=== PATIENT | female | born 1970 | race Caucasian/White ===

== ENCOUNTER 2016-10-13 09:17 | Day surgery (SDC) | payer OTHER ==
[2016-10-07 13:29] VITALS: BMI 34.0
--- NOTE | 2016-10-07 14:24 | PAT Medication Instructions ---
Service Date Oct 07, 2016. Current Home Medication List Bupropion (Wellbutrin Sr), 150 MG PO QAM Insulin Glargine (Lantus), 20 UNITS SC QAM Insulin Lispro (Human) (Humalog), 1 DOSE SQ UD PRN for CARB RATION Omeprazole (Prilosec), 20 MG PO QAM PRN for Indigestion Medication Instructions For Your Scheduled Surgery - Hold the following medications the morning of surgery: Insulin Lispro (Human) (Humalog), 1 DOSE SQ UD PRN for CARB RATION - Take the following medications the morning of surgery with a sip of water: Omeprazole (Prilosec), 20 MG PO QAM PRN for Indigestion Bupropion (Wellbutrin Sr), 150 MG PO QAM - For Insulin Dependent Diabetic patients: Test blood sugar A.M. of surgery. - If blood sugar is greater than 150, take half of your regular dose of: Lantus 10 units - If blood sugar is less than 150, do not take any: Lantus If you have any questions please call us at [phone] or [phone] ( [place]) or [phone]
[2016-10-07 15:07] LABS: INR 0.9 (0.9-1.1); PARTIAL THROMBOPLASTIN RATIO 1.1; PROTHROMBIN TIME (PATIENT) 9.6 SECONDS (9.0-12.0)
--- NOTE | 2016-10-07 15:26 | DIAGNOSTIC IMAGING REPORT ---
CHEST PREADMISSION(PA/LAT) CLINICAL HISTORY: PAT preoperative evaluation COMPARISON STUDY: No previous studies for comparison. FINDINGS: The bones soft tissues and hemidiaphragms are normal. The cardiomediastinal silhouette is normal. The lungs are clear. The pulmonary vasculature is normal. IMPRESSION: Negative chest. Electronically signed by: Dragan Thomas M.D. 10/07/2016 3:25 PM Dictated Date/Time: 10/07/2016 3:21 PM
--- NOTE | 2016-10-12 16:15 | History and Physical ---
History & Physical Date of Service Oct 12, 2016. History & Physical CC: Varicose veins of the lower extremittes. HPI: Ms. Wilcox states that she has had them for a number of years, but that they did become more painful over the past 3-4 years. She says she did begin wearing panty hose compression, but was unsure of the compression strength, but that she did start wearing them on a fairly regular basis 3-4 years ago. She states that at this point, she is down to only wearing them when she is working. She is on her feet as a registered nurse. She states that she has not worked in the last 2-3 months and previous to that was only working 2-3 days a week as well. She states that she has increased pain and swelling in her left leg after exercising. She is not wearing her stockings at that time because it is too hot in the gym. She denies other complaints at this time including headaches, fevers, chills, dizziness, chest pain, shortness of breath , abdominal pain, nausea, vomiting, diarrhea, constipation, dysuria, hematuria, rest pain, claudication, nonhealing wounds or ulcers or other complaints. She returned to the office and stated they are significantly worse in the left leg than the right and it does cause her considerable discomfort particularly when she attempts to exercise. She states that she has been wearing her panty hose compression regularly for the last 3 months, even during exercise; however , she states that they do pull down and fall down and sometimes cause her more discomfort than not wearing them at all. She has been faithfully wearing them. She exercises at least 3-5 days a week and does elevate her legs when she is able due to the discomfort particularly as I have said, in her left leg. She had an ultrasound performed prior to today's appointment to check for saphenous vein reflux, which demonstrates saphenous vein incompetence with reflux noted. However, the size of her great saphenous vein in the left lower extremity is 2.6 mm in the distal thigh and 3 mm at the knee. Her right leg great saphenous vein diameter is 2.5 mm in the distal thigh and 2.5 mm at the knee and also demonstrates saphenous vein reflux. ALLERGIES: IVP DYE AND BENADRYL. HOME MEDICATIONS: Reconciled on the chart and include a Humalog pen, Lantus insulin, omeprazole and Wellbutrin. PAST MEDICAL HISTORY: Positive for type 1 diabetes mellitus with insulin pump, depression, and the varicose veins. PAST SURGICAL HISTORY: Positive for cholecystectomy, gastric bypass, diaphragmatic hernia and tonsillectomy. FAMILY HISTORY: Positive for arthritis in her sister, heart disease in her mother, skin cancer and stroke in her father, diabetes in distant relatives and varicose veins in multiple uncles as well as her father. SOCIAL HISTORY: Positive for a current history of tobacco use. The patient states that she smokes at least 1 pack a day. She denies any significant alcohol use and denies any illicit drug use. 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 REVIEW OF SYSTEMS: Negative for fatigue, fevers, sweats, weight loss, exercise intolerance, abnormal moles, vision changes or photophobia, ear pain, sinus problems or sore throat, cough, shortness of breath, hemoptysis or wheezing, chest pain, palpitations or syncope edema primarily of her left ankle after exercising. She denies abdominal pain, nausea, vomiting, diarrhea, constipation , dysuria, hematuria, muscle weakness, headaches, dizziness, numbness or seizures. PHYSICAL EXAMINATION: Her vital signs today were as follows: Blood pressure of 128/82 in her left arm, heart rate of 59 and oxygenation of 98% on room air. She is 167 cm tall and weighs 89 kg. Constitutional: In general, the patient is an overweight but generally healthy-appearing, well-nourished, well- developed middle-aged female in no acute distress. She ambulates without assistance and is active, alert and oriented x4 with normal recent and remote memory. Her head is normocephalic and atraumatic. Eyes are EOMI. Her ENWY exam demonstrates no hearing loss, rhinorrhea or pharyngeal erythema. Her neck is supple, nontender with midline trachea without masses or crepitus. Lung exam demonstrates no dyspnea; they are clear to auscultation bilaterally. They are decreased somewhat throughout. Cardiovascular exam demonstrates nondisplaced apical impulse with a regular rate and rhythm without murmurs, lifts, heaves, thrills or gallops. Peripheral pulses full and equal in all extremities unless otherwise noted; specifically they are normal in her carotid , brachial, radial, femoral, posterior tibial and dorsalis pedis pulses. The patient demonstrates no bruits in her carotid, abdominal or femoral area. Her abdomen is soft and nontender with normoactive bowel sounds in all 4 quadrants without guarding or rebound. There is no flank or CVA tenderness. No pulsatile mass appreciable. Her musculoskeletal exam demonstrates normal tone and strength for age. Bilateral upper extremities demonstrate no cyanosis, edema, clubbing, varicosities or ulcers. Her left lower extremity demonstrates large varicosities which are somewhat tortuous, extending from her mid-thigh down into her lower leg as well as her posterior lower leg. This is mildly tender to palpation. There is no erythema, warmth or firm hard cord noted there. She does have other scattered varicosities and spider veins as well. The diameter of this large varicosity in her left leg is approximately 10 mm. The right lower extremity does demonstrate some scattered varicosities to a lesser extent as well as patches of spider veins as well. She has trace edema in her bilateral ankles. Neurologically, the patient has grossly intact cranial nerves and grossly intact sensation. ASSESSMENT: Complicated varicose veins, primarily of the left lower extremity PLAN: The patient is admitted for a left lower extremity ambulatory phlebectomy of the large varicosity. The procedure, risks, benefits, and alternatives were discussed at length with the patient. She expressed understanding and agreement to proceed
[~2016-10-13] VITALS: Ht 167.6 cm; Wt 95.9 kg
[~2016-10-13 09:17] MED LIST: BUPR-79 PO; CEFAZOLIN 2000 MG/60 ML D5W 60 ML IV SCH; INSDGI SC; INSU100I SQ; LACTATED RINGER'S 1000ML IV SCH; PRLSR20 PO; SCOPOLAMINE 1.5 MG TDSY TD SCH; SODIUM CHLORIDE 0.9% 1000ML 1,000 ML IV SCH
[2016-10-13] MEDS ORDERED: FERR1TAB13 PO (10:07)
[2016-10-13 10:13] VITALS: BP 105/74; PULSE 73; TEMP 36.5; O2SAT 100; Ht 167.6 cm; Wt 95.9 kg
[2016-10-13] MEDS ORDERED: PROPOFOL IV EMULSION 10 MG/ML 20 ML VIAL IV ONE (10:16)
[2016-10-13] MEDS ORDERED: FENTANYL CITRATE INJ 50 MCG/1 ML 2 ML VIAL ONE ×2 (10:17→13:43)
[2016-10-13] MEDS ORDERED: MIDAZOLAM HCL 1 MG/ML 2ML VIAL ONE ×2 (10:17→12:20)
[2016-10-13] MEDS ORDERED: LIDOCAINE HCL 2% 2 ML VIAL (20MG/ML) ONE (10:21)
[2016-10-13] MEDS ORDERED: ONDANSETRON INJ 2 MG/ML 2 ML VIAL ONE (10:21)
[2016-10-13] MEDS ORDERED: DEXAMETHASONE SOD INJ 4 MG/ML VIAL ONE (10:21)
[2016-10-13] MEDS ORDERED: LACTATED RINGER'S 1000ML 1,000 ML IV PRN (10:22)
[2016-10-13] MEDS ORDERED: FENTANYL CITRATE INJ 50 MCG/1 ML 2 ML VIAL IV PRN (10:30)
[2016-10-13] MEDS ORDERED: ONDANSETRON INJ 2 MG/ML 2 ML VIAL IV PRN (10:30)
[2016-10-13 10:54] LABS: PREG INTERNAL NEGATIVE QC NEG CLEAR BACKGROUND; PREG INTERNAL POSITIVE QC POS CONTROL LINE
--- NOTE | 2016-10-13 12:31 | History & Physical Bridge Note ---
H&P Re-Evaluation Bridge Note: I have examined the patient, reviewed the History & Physical and in the interval since the performance of the History & Physical I have noted the following changes of clinical significance: No changes noted
[2016-10-13] MEDS ORDERED: HEPARIN SOD (PORCINE) 1000 UNIT/ML 10 ML VIAL ONE (13:04)
[2016-10-13] MEDS ORDERED: OXYC-57 PO (14:21)
--- NOTE | 2016-10-13 14:27 | Discharge Instructions ---
Discharge Instructions Date of Service Oct 13, 2016. Visit Reason for Visit: Complicated Varicose Veins Left Leg Discharge Discharge Diagnosis / Problem: Varicose veins left lower extremity Discharge Goals Goal(s): Therapeutic intervention Activity Recommendations Activity Limitations: per Instructions/Follow-up section Anesthesia . Post Anesthesia Instructions: If you have had General Anesthesia or IV Sedation: * Do not drive today. * Resume driving when surgeon permits. * Do not make important decisions or sign legal documents today. * Call surgeon for: 1. Temperature elevations greater than 101 degrees F. 2. Uncontrollable pain. 3. Excessive bleeding. 4. Persistent nausea and vomiting. 5. Medication intolerance (nausea, vomiting or rash). * For nausea and vomiting use only clear liquids such as: tea, soda, bouillon until nausea subsides, then gradually increase diet as tolerated. * If you have any concerns or questions, call your surgeon's office. If physician is unavailable and it is an emergency, call 911 or go to the nearest emergency room. . Instructions / Follow-Up Instructions / Follow-Up SPECIAL CARE INSTRUCTIONS: Wraps/Dressings: * A compression wrap will be applied to your legs after the procedure and should remain in place until the morning after. * Remove the bandage if it rolls down or causes pain. Rewrap the leg starting at the bottom of the leg, just above the toes. Apply firm, but gently pressure when applying the wrap. * Avoid getting the wrap wet. * You may shower the following morning after you remove the wraps/dressings. Compression Stockings: * Begin wearing compression stockings the day following your procedure (after you have removed the wraps/dressings and showered). * Compression stockings should be put on in the morning and removed right before going to bed. * Stockings should be worn for 2 weeks following the procedure. * YOU MUST OBTAIN THE PRESCRIBED STOCKINGS PRIOR TO YOUR PROCEDURE. Activity: * Walk 4-5 times around the house after you come home from your procedure. * Elevate your leg(s) while sitting. * You may resume your normal activities as tolerated after 24 hours. Possible Complications: * Swelling/Bruising/Soreness - You may have some swelling, bruising and/or soreness after the procedure. you may also feel a "cord or rope" under the skin. This is normal. You may take Tylenol or Ibuprofen for pain as directed. Call our office ([phone]) if you develop: * Any redness, severe swelling, pain in the calf and/or drainage from the puncture sites You will be receiving a call from the Vascular Surgery Nurse after you are discharged. FOLLOW UP VISIT: You will be scheduled for an ultrasound of your leg(s) 4-5 days after the procedure. You will have a follow up visit with your surgeon in 2-4 weeks. If these have not already been scheduled, please call our office at [phone] to schedule. Diet Recommendations Recommended Home Diet: resume previous diet Procedures Procedures Performed: Left Leg Phlebectomy Pending Studies Studies pending at discharge: no Medical Emergencies . Who to Call and When: Medical Emergencies: If at any time you feel your situation is an emergency, please call 911 immediately. . Non-Emergent Contact Non-Emergency issues call your: Surgeon . . "Provider Documentation" section prepared by Shreyas Allen. [place] Drug Monitoring Program Search Results: patient reviewed within database, no issues identified
--- NOTE | 2016-10-13 14:29 | OPERATIVE REPORT ---
DATE OF OPERATION: 10/13/2016 PREOPERATIVE DIAGNOSIS: Left lower extremity pain and swelling with large varicosities. POSTOPERATIVE DIAGNOSIS: Same. PROCEDURE: Phlebectomy (14 incisions) of left lower extremity varicosities. SURGEON: Shreyas Allen M.D. RUBBISH COLLECTOR: Nahun Vasquez M.D., Jackelin Plascencia PA-C. ESTIMATED BLOOD LOSS: 100 mL. ANESTHESIA: General. COMPLICATIONS: None. INDICATIONS: This is a 46-year-old female who presented with left lower extremity swelling and discomfort. Venous duplex did not show a significant reflux in the greater saphenous vein. However, she did have a very large varicosity along the medial aspect of her leg. This area became especially painful at the end of the day. Phlebectomy was indicated for relief of her left lower extremity symptoms. She understood the risks, benefits, alternatives to the above procedure and agreed to proceed. PROCEDURE: The patient was brought to the operating room and placed in the supine position. Left lower extremity was prepped and draped in normal sterile fashion. A timeout was performed and all parties agreed to the correct patient and procedure to be performed. Appropriate surgical prophylactic antibiotics were administered within 1 hour of the incision. The vein had been previously marked. Again, it was a large vein that travelled along the medial aspect of her leg from the level of the mid thigh back behind her knee. Approximately 14 separate stab incisions were made along the length of the vein. Dissection was carried down bluntly and the vein was encountered. It was pulled out using a sequential hemostat. Several areas were tied. There was some bleeding. There was some bleeding encountered and pressure was held on the vein. We made multiple stab incisions along the medial aspect of her leg as well as behind her knee to remove these large varicosities. Pressure was held and hemostasis was achieved. The incisions were stapled closed. Her leg was wrapped in a compressive bandage. She was awakened and transferred to recovery room in satisfactory condition. I attest to the content of the Intraoperative Record and any orders documented therein. Any exceptio ns are noted below.
--- NOTE | 2016-10-13 14:32 | [facility] Post Operative Brief Note ---
Immediate Operative Summary Operative Date Oct 13, 2016. Pre-Operative Diagnosis Complicated varicose veins, left lower extremities. Post-Operative Diagnosis Same as preop. Procedure(s) Performed Left Leg Phlebectomy Surgeon Dr. Allen Aircrewman Surgeon(s) Dr. Nahun Vasquez, Jackelin Yates, PAC Estimated Blood Loss 75 ml Findings Varicose veins Specimens A: Left leg varicose vein. Anesthesia Gen Complication(s) None Disposition Recovery Room / PACU
[2016-10-13 15:29] VITALS: BP 128/76; PULSE 72; TEMP 37.1; O2SAT 96
--- NOTE | 2016-10-13 15:41 | Anesthesiology Progress Note ---
Anesthesia Post Op Note Date & Time Oct 13, 2016 at 15:40 Vital Signs Pain Intensity: 0 Vital Signs Past 12 Hours Date Time Temp Pulse Resp B/P Pulse Ox O2 Delivery O2 Flow Rate FiO2 10/13/16 15:29 37.1 72 20 128/76 96 0 10/13/16 15:12 36.6 10/13/16 15:08 58 21 95 10/13/16 15:08 59 21 10/13/16 15:05 118/76 10/13/16 15:03 56 17 93 10/13/16 15:03 56 17 10/13/16 15:00 123/80 10/13/16 14:58 64 14 10/13/16 14:58 64 14 97 10/13/16 14:55 139/81 10/13/16 14:53 66 16 10/13/16 14:53 67 16 96 10/13/16 14:52 68 16 96 10/13/16 14:52 65 16 10/13/16 14:50 139/78 10/13/16 14:47 68 16 10/13/16 14:47 68 16 96 10/13/16 14:46 135/79 10/13/16 14:42 67 18 10/13/16 14:42 68 18 100 10/13/16 14:41 65 18 100 10/13/16 14:41 67 18 10/13/16 14:40 120/84 10/13/16 14:36 71 25 10/13/16 14:36 70 25 100 10/13/16 14:35 143/81 10/13/16 14:31 78 21 10/13/16 14:31 78 21 100 10/13/16 14:30 137/79 10/13/16 14:26 36.4 81 20 133/74 100 Mask 10 10/13/16 14:26 78 16 10/13/16 14:26 75 16 133/74 100 10/13/16 10:13 36.5 73 20 105/74 100 Room Air Notes Mental Status: alert / awake / arousable, participated in evaluation Pt Amnestic to Procedure: Yes Nausea / Vomiting: adequately controlled Pain: adequately controlled Airway Patency, RR, SpO2: stable & adequate BP & HR: stable & adequate Hydration State: stable & adequate Anesthetic Complications: no major complications apparent Pt's post-op glucose glucose 299. Pt refuses insulin, saying she'll take her own at home and resume her usual type I DM regimen.
[2016-10-13 15:52] VITALS: BP 119/74; PULSE 68; TEMP 37.1; O2SAT 96
[2016-10-13] MEDS ORDERED: CHECK SCOPOLAMINE PATCH PLACEMENT SCH (16:00)
== END 2016-10-13 16:11 | disposition home health service (06) ==
LOC: C.ACU 09:17
PROVIDERS: ATTEND Surgery Vascular Surgery
DX: I83.812 Varicose veins of left lower extremity with pain (principal); I83.892 Varicose veins of left lower extremity with other complications; E10.9 Type 1 diabetes mellitus without complications; Z79.4 Long term (current) use of insulin; F32.9 Major depressive disorder, single episode, unspecified; Z98.890 Other specified postprocedural states